=== PATIENT | female | born 1990 | race Caucasian/White ===

== ENCOUNTER 2021-01-10 23:39 | Emergency (ER) | payer MEDICAID, OTHER ==
--- NOTE | 2021-01-10 23:49 | ED Physician Documentation ---
PD HPI ABD PAIN - Stated complaint Stated Complaint: LOW R SIDE PX - Chief complaint Chief Complaint: Abd Pain - History obtained from History obtained from: Patient - History of Present Illness Timing - onset: How many days ago ("few days" per patient) Timing - details: Gradual onset, Waxing and waning Pain level now: 5 Quality: Pain Location: RLQ Radiation: Lower back, Other (right hip) Improved by: Laying still Worsened by: Moving, Palpation Associated symptoms: No: Fever, Nausea, Vomiting, Diarrhea, Constipation Similar symptoms before: Has not had sx before Recently seen: Not recently seen Review of Systems Constitutional: denies: Fever, Chills, Sweats Cardiac: reports: Reviewed and negative Respiratory: reports: Reviewed and negative GI: reports: Abdominal Pain. denies: Abdominal Swelling, Nausea, Vomiting, Constipation, Diarrhea : denies: Dysuria, Frequency, Vaginal bleeding, Now EGA Musculoskeletal: reports: Back pain PD PAST MEDICAL HISTORY - Past Medical History Past Medical History: Yes [employer]: Endometriosis - Past Surgical History Past Surgical History: Yes General: Cholecystectomy, Appendectomy - Present Medications Home Medications: Ambulatory Orders Medication Instructions Recorded Confirmed HYDROcod/ACETAM 5/325 [[place] 5/325] 1 - 2 tablet PO Q6H PRN #14 tablet 01/11/21 - Allergies Allergies/Adverse Reactions: Allergies Allergy/AdvReac Type Severity Reaction Status Date / Time No Known Drug Allergies Allergy Verified 01/10/21 23:48 - Living Situation Living Arrangement: reports: At home PD ED PE NORMAL - Vitals Vital signs reviewed: Yes - General General: Alert and oriented X 3, No acute distress, Well developed/nourished - Cardiac Cardiac: RRR, No murmur - Respiratory Respiratory: No respiratory distress, Clear bilaterally - Abdomen Abdomen: Soft, Non distended, Other (mild TTP right hemipelvis without guarding or rebound, no specific point tenderness) - Back Back: No CVA TTP - Derm Derm: Normal color, Warm and dry, No rash Results - Vitals Vitals: Vital Signs - 24 hr 01/10/21 01/11/21 01/11/21 23:41 01:48 03:30 Temperature 36.7 C 37.3 C Heart Rate 135 H 92 Respiratory 16 22 20 Rate Blood Pressure 189/105 H 124/91 H O2 Saturation 98 01/11/21 03:31 Temperature 37.3 C Heart Rate 92 Respiratory 20 Rate Blood Pressure 124/91 H O2 Saturation 99 Oxygen O2 Source Room air - Labs Labs: Laboratory Tests 01/11/21 01/11/21 01/11/21 00:12 00:12 00:12 WBC 13.5 H RBC 4.60 Hgb 11.5 L Hct 37.6 MCV 81.7 MCH 25.0 L MCHC 30.6 L RDW 15.1 H Plt Count 288 MPV 10.0 Neut # (Auto) 9.5 H Lymph # (Auto) 2.7 [place] # (Auto) 0.9 Eos # (Auto) 0.2 Baso # (Auto) 0.1 Absolute Nucleated RBC 0.00 Nucleated RBC % 0.0 Sodium 136 Potassium 3.9 Chloride 101 Carbon Dioxide 23 Anion Gap 12.0 BUN 12 Creatinine 0.6 Estimated GFR (MDRD) 116 Glucose 124 H Calcium 8.9 Total Bilirubin 0.6 AST 20 ALT 18 Alkaline Phosphatase 58 Total Protein 7.6 Albumin 4.0 Globulin 3.6 Albumin/Globulin Ratio 1.1 Lipase 27 HCG, Quant < 0.60 Urine Color Urine Clarity Urine pH Ur Specific [place] Urine Protein Urine Glucose (UA) Urine Ketones Urine Occult Blood Urine Nitrite Urine Bilirubin Urine Urobilinogen Ur Leukocyte Esterase Urine RBC Urine WBC Ur Squamous Epith Cells Urine Bacteria Ur Microscopic Review Urine Culture Comments 01/11/21 01:25 WBC RBC Hgb Hct MCV MCH MCHC RDW Plt Count MPV Neut # (Auto) Lymph # (Auto) Webster # (Auto) Eos # (Auto) Baso # (Auto) Absolute Nucleated RBC Nucleated RBC % Sodium Potassium Chloride Carbon Dioxide Anion Gap BUN Creatinine Estimated GFR (MDRD) Glucose Calcium Total Bilirubin AST ALT Alkaline Phosphatase Total Protein Albumin Globulin Albumin/Globulin Ratio Lipase HCG, Quant Urine Color YELLOW Urine Clarity CLEAR Urine pH 6.0 Ur Specific [place] 1.020 Urine Protein NEGATIVE Urine Glucose (UA) NEGATIVE Urine Ketones NEGATIVE Urine Occult Blood TRACE-INTA Urine Nitrite NEGATIVE Urine Bilirubin NEGATIVE Urine Urobilinogen 0.2 (NORMAL) Ur Leukocyte Esterase SMALL H Urine RBC 0-5 Urine WBC 4-5 Ur Squamous Epith Cells FEW Squamous Urine Bacteria Few Ur Microscopic Review INDICATED Urine Culture Comments INDICATED - Rads (name of study) CT A/P Radiology: Prelim report reviewed, See rad report PD MEDICAL DECISION MAKING - ED course Complexity details: reviewed results, re-evaluated patient, considered differential, d/w patient ED course: mild leukocytosis noted on blood tests, small (2.9 cm) right ovarian cyst on CT without other significant/concerning findings. Results reviewed with patient, she reports improvement with 2 mg IV morphine, given toradol and PO vicodin for residual pain with shorts course rx for vicodin and return precautions reviewed. I am prescribing a short course of short-acting opioid pain medication for this patient. I have reviewed the patients ROOM SERVICE CLERK and no concerning findings were noted. I have discussed that the opioids are for short term therapy only, and will not be refilled from the ED. Departure - Departure Disposition: Home, Self Care Clinical Impression: Ovarian cyst Qualifiers: Laterality: right Qualified Code(s): N83.201 - Unspecified ovarian cyst, right side Condition: Good Instructions: ED Cyst Ovarian Follow-Up: Faizan Angulo DO [Provider Admit Priv/Credential] - Prescriptions: HYDROcod/ACETAM 5/325 [[place] 5/325] 1 - 2 tablet PO Q6H PRN #14 tablet PRN Reason: Pain Comments: A prescription for hydrocodone/acetaminophen has been electronically submitted to [facility] in [place]. Follow up with your textile chemist, call Wednesday to arrange for next available appointment. I am prescribing a short course of narcotic pain medication for you. These are potentially dangerous and addictive medications that should be used carefully. These medications may constipate you. Take an [id number] stool softener (docusate) twice daily with plenty of water while taking these medications. If you go 24 hours without a bowel movement, take [id number] miralax, per package instructions. Do not drink or drive while taking these medications. If you received narcotic or sedating medications while in the emergency department, do not drive for 24 hours. Store this medication in a safe, secure place and out of reach of children. It is a violation of federal law to give or sell this medication to another person or to use in a manner other than prescribed. The ED will not refill narcotic prescriptions, including prescriptions lost or stolen. To dispose of unwanted medications: 1. [facility] at [address] in [place] has a medication drop box. They accept prescription medications (in pill form) Wednesday through Wednesday 9:00 a.m. to 5:00 p.m. 2. The [facility] [employer] accepts prescription medications (in pill form only) for disposal year round. Call for more information. 3. Contact the [facility] for the next [facility] sponsored prescription drug collection event. , [phone], or [phone]; Discharge Date/Time: 01/11/21 03:34
[2021-01-11] MEDS ORDERED: SODIUM CHLORIDE 0.9% 1,000 ML IV STA (00:02)
[2021-01-11] MEDS ORDERED: MORPHINE 2 MG/ML CARPUJECT IVP STA (00:02)
[2021-01-11 00:28] LABS: BASOPHILS # (AUTO) 0.1 10^3/uL (0.0-0.1); BASOPHILS % (AUTO) 0.4 %; EOSINOPHILS # (AUTO) 0.2 10^3/uL (0.0-0.7); EOSINOPHILS % (AUTO) 1.6 %; HCT - HEMATOCRIT 37.6 % (37.0-47.0); HGB - HEMOGLOBIN 11.5 g/dL (12.0-16.0); LYMPHOCYTES # (AUTO) 2.7 10^3/uL (1.5-3.5); LYMPHOCYTES % (AUTO) 20.2 %; MEAN CORPUSCULAR HGB CONC 30.6 g/dL (32.0-36.0); MEAN CORPUSCULAR VOLUME 81.7 fL (81.0-99.0); MONOCYTES # (AUTO) 0.9 10^3/uL (0.0-1.0); NEUTROPHILS # (AUTO) 9.5 10^3/uL (1.5-6.6); NEUTROPHILS % (AUTO) 70.5 %; PLT - PLATELET COUNT 288 10^3/uL (130-450); RED CELL DISTRIBUTION WIDTH 15.1 % (12.0-15.0); WHITE BLOOD COUNT 13.5 x10^3/uL (4.8-10.8)
[2021-01-11 00:37] LABS: ALBUMIN/GLOBULIN RATIO 1.1 (1.0-2.2); BILIRUBIN,TOTAL 0.6 mg/dL (0.2-1.0); CALCIUM 8.9 mg/dL (8.5-10.3); CREATININE 0.6 mg/dL (0.4-1.0); POTASSIUM 3.9 mmol/L (3.5-5.0); TOTAL PROTEIN 7.6 g/dL (6.7-8.2)
[2021-01-11] MEDS ORDERED: IOVERSOL 320 100 ML VIAL IVP ONE ×2 (01:17→01:54)
[2021-01-11 01:36] LABS: BILIRUBIN,URINE NEGATIVE (NEGATIVE); GLUCOSE, URINE (UA) NEGATIVE (NEGATIVE); KETONES,URINE (UA) NEGATIVE (NEGATIVE); LEUKOCYTE ESTERASE, URINE SMALL (NEGATIVE); NITRITE,URINE NEGATIVE (NEGATIVE); OCCULT BLOOD,URINE TRACE-INTA (NEGATIVE); PROTEIN,URINE NEGATIVE (NEGATIVE); UROBILINOGEN,URINE 0.2 (NORMAL) E.U./dL (NORMAL)
[2021-01-11 01:40] LABS: CLARITY,URINE CLEAR (CLEAR)
[2021-01-11 01:45] LABS: BACTERIA,URINE Few /HPF (None Seen); RBC,URINE 0-5 /HPF (0-5); SQUAMOUS EPITHELIAL CELL,UR FEW Squamous (<= Few)
[2021-01-11] MEDS ORDERED: KETOROLAC 30 MG/ML VIAL IVP STA (03:08)
[2021-01-11] MEDS ORDERED: HYDROcod/ACETAM 5/325 MG TABLET PO STA (03:08)
[2021-01-11 03:31] VITALS: BP 124/91
--- NOTE | 2021-01-11 09:09 | CT Report ---
PROCEDURE: Abdomen/Pelvis W INDICATIONS: RLQ pain CONTRAST: IV CONTRAST: Optiray 320 ml: 100 PO CONTRAST: *NO PO CONTRAST TECHNIQUE: After the administration of IV contrast, 5 mm thick sections acquired from the diaphragms to the symp hysis. 5 mm thick coronal and sagittal reformats were acquired. For radiation dose reduction, the f ollowing was used: automated exposure control, adjustment of mA and/or kV according to patient size. COMPARISON: None. FINDINGS: Image quality: Excellent. ABDOMEN: Lung bases: Lung bases are clear. Heart size is normal. A small hiatal hernia is incidentally note d. Solid organs: Liver and spleen are normal in size and enhancement. Gallbladder has been removed Bi liary system is non dilated. Pancreas enhances normally. No adrenal nodules. Kidneys demonstrate n ormal size and enhancement, without hydronephrosis. Peritoneum and bowel: In this patient with this given history, scrutiny is given to the appendix. At the expected location of the appendix, there is a thin series of hyperdense foci seen, as on series 6 images 35 and 36. This does not appear inflamed. No focal right lower quadrant inflammatory change s are seen. No dilated loops of small bowel are seen. A moderate amount of stool is seen within the colon. Nodes and vessels: No retroperitoneal or mesenteric adenopathy by size criteria. Aorta and inferior vena cava are normal in size. Miscellaneous: No ventral hernias. PELVIS: Genitourinary: Bladder wall thickness is normal. The uterus demonstrates an unremarkable appearance for age. No adnexal masses are seen. A right ovarian cyst is seen that measures 2.9 cm. Miscellaneous: No inguinal hernias or adenopathy. Bones: No suspicious bony lesions. No vertebral body compression fractures. IMPRESSION: A thin hyperdense structure is seen within the right lower quadrant which is felt most l ikely related to a small appendix with appendicoliths within it. However, differential diagnosis incl udes postoperative change from appendectomy. No focal right lower quadrant inflammatory changes are s een. There is a moderate amount of stool seen within the colon. Please correlate with clinical constipatio n. A 2.9 cm right ovarian cyst is seen, which is likely within physiologic limits. Incidental note is made of: Small hiatal hernia Cholecystectomy Note: No significant discrepancy from the preliminary report. Reviewed by: Stephane Dunaway MD on 01/11/2021 8:08 AM AKDT Approved by: Stephane Dunaway MD on 01/11/2021 8:08 AM ISABELLE Station ID: [id number]
== END 2021-01-11 03:34 | disposition home or self-care (01) ==
LOC: ED 23:39
DX: N83.201 Unspecified ovarian cyst, right side (principal); D72.829 Elevated white blood cell count, unspecified
CPT/HCPCS: 36415; 74177; 80053; 81001; 83690; 84702; 85025; 87086; 96374; 96375; 99283; 99284; A9270; Q9967; 81003

== ENCOUNTER 2021-12-25 15:39 | Outpatient (CLI) | payer MEDICAID ==
--- NOTE | 2021-12-25 18:20 | XRAY Report ---
PROCEDURE: Chest 2 View X-Ray INDICATIONS: UPPER RESPIRATORY INFECTION/COUGH TECHNIQUE: 2 view(s) of the chest. COMPARISON: None. FINDINGS: Surgical changes and devices: None Lungs and pleura: No pleural effusions or pneumothorax. Lungs are clear. Mediastinum: Mediastinal contours are normal. Heart size is normal. Bones and chest wall: No suspicious bony abnormalities. Soft tissues appear unremarkable. IMPRESSION: Normal two-view chest x-ray Reviewed by: Scot Mckenzie MD on 12/25/2021 5:18 PM AKEARNEST Approved by: Scot Mckenzie MD on 12/25/2021 5:18 PM AKDT Station ID: [id number]
== END 2021-12-25 15:40 | disposition home or self-care (01) ==
LOC: DI.S 15:39
PROVIDERS: ATTEND Physician Assistant
DX: R05.9 Cough, unspecified (principal); J06.9 Acute upper respiratory infection, unspecified